=== PATIENT | male | born 1990 | race Two or more races ===

== ENCOUNTER 2024-04-03 13:26 | Emergency (ER) | payer OTHER ==
[~2024-04-03] VITALS: Ht 175.3 cm; Wt 117.9 kg
[2024-04-03] MEDS ORDERED: FAMOTIDINE/PF 20 MG/2 ML VIAL IV ONE (14:30)
[2024-04-03] MEDS ORDERED: KETOROLAC TROMETHAMINE 30 MG VIAL IV ONE (14:30)
[2024-04-03] MEDS ORDERED: SODIUM CHLORIDE 0.45 % 500 ML IV ONE (14:30)
[2024-04-03 15:08] LABS: HEMATOCRIT 46.8 % (39.0-48.0); HEMOGLOBIN 16.4 g/dL (13-16.00); MEAN CELL VOLUME 85.5 fL (80.0-100.00); PLATELET COUNT 289 K/uL (150-450); RED BLOOD COUNT 5.47 M/uL (4.00-6.00); RED CELL DISTRIBUTION WIDTH 13.1 % (11.5-14.5)
[2024-04-03 15:27] LABS: PH,URINE 5.5 (5.0-8.0); URINE APPEARANCE Clear; URINE BILIRRUBIN Negative (NEGATIVE); URINE BLOOD Negative; URINE COLOR Yellow; URINE GLUCOSE Negative (NEGATIVE); URINE KETONE Negative (NEGATIVE); URINE LEUKOCYTE Negative; URINE NITRATE Negative; URINE PROTEIN Negative (NEGATIVE); URINE UROBILINOGEN 0.2 E.U./dl
[2024-04-03 15:30] LABS: URINE BACTERIA 13.8 uL (0.0-1933)
[2024-04-03 15:33] LABS: ALBUMIN 4.2 gm/dL (3.4-5.0); BILIRUBIN TOTAL 0.74 mg/dL (0.3-1.2); CALCIUM 9.6 mg/dL (8.5-10.1); CREATININE SERUM 1.2 mg/dL (0.70-1.30); GFR 68.9; GLOBULINA 4.6 G/DL (2.4-3.5); POTASSIUM 4.14 mEq/L (3.5-5.1); TOTAL PROTEIN 8.8 gm/dL (6.4-8.2)
[2024-04-03 16:16] LABS: URINE CAST 0.15 uL (0.0-1.40); URINE EPITHELIAL CELLS 1.3 uL (0.0-38.8); URINE RBC 1.5 uL (0.0-20.8)
== END 2024-04-03 17:07 ==
LOC: ER 13:28
PROVIDERS: Nurse Practitioner Family
DX: R10.32 Left lower quadrant pain (principal); R16.1 Splenomegaly, not elsewhere classified